=== PATIENT | female | born 1945 | race Caucasian/White ===

== ENCOUNTER → 2017-09-27 | Outpatient (CLI) | payer MEDICARE, OTHER ==
[~2017-09-27] MED LIST: Allegra PO; CALTRATE 6001 TABLE1 PO; COUMADIN,JANTOVE1 MG PO; DIOVAN HCT 11 TABLE1 PO; ENDOCET 5-3251 EACH PO; FEOSOL325 MG PO; FLU PO; NYQUIL D COLD PO; ZEGERID20 MG PO; ZOVIRAX800 M1 PO; Zocor PO; Zoloft PO
== END | disposition home or self-care (01) ==
LOC: CDC 15:08
DX: Z01.810 Encounter for preprocedural cardiovascular examination (principal); K40.30 Unilateral inguinal hernia, with obstruction, without gangrene, not specified as recurrent; R94.31 Abnormal electrocardiogram [ECG] [EKG]
CPT/HCPCS: 93000

== ENCOUNTER 2017-10-12 08:45 | Day surgery (SDC) | payer OTHER ==
[~2017-10-12] VITALS: Ht 157.5 cm; Wt 70.2 kg
[~2017-10-12 08:45] MED LIST changes: +DIOVAN HCT 31 TABLE1 PO; +FLONASE16 G1 BOTH NARES; +LO-DOSE ASPIRIN81 M1 PO; +PRILOSEC20 MG PO; +ULTRAM50 MG PO; +VALACYCLOVIR HCL; +VITAMIN B-121000 MC3 PO; +VITAMIN B-6100 MG PO; +VITAMIN B122500 MCG PO; +VITAMIN D31000 UNIT PO; +ZOCOR40 MG PO; +ZYRTEC10 M3 PO
[2017-10-12 09:14] VITALS: BP 135/67
[2017-10-12 09:55] LABS: CHLORIDE 101 MEQ/L (99-109); GFR ESTIMATE (CALCULATED) 58 mL/min/; GLUCOSE 100 mg/dL (70-99); POTASSIUM 4.2 MEQ/L (3.7-5.4); SODIUM 139 MEQ/L (136-147); UREA NITROGEN (BUN) 21 mg/dL (9-23)
[2017-10-12] MEDS ORDERED: NORCO 5/3251 TABLET PO (13:57)
[2017-10-12 14:20] VITALS: BP 144/65
[2017-10-12 15:12] VITALS: BP 152/66
== END 2017-10-12 15:25 | disposition home or self-care (01) ==
LOC: SDC
PROVIDERS: Surgery
PROC: 0YU50JZ Supplement Right Inguinal Region with Synthetic Substitute, Open Approach (ICD-10-PCS; principal; 2017-10-12)
DX: K40.20 Bilateral inguinal hernia, without obstruction or gangrene, not specified as recurrent (principal); I10 Essential (primary) hypertension; E78.4 Other hyperlipidemia; K21.0 Gastro-esophageal reflux disease with esophagitis; E03.9 Hypothyroidism, unspecified; E66.3 Overweight; Z68.29 Body mass index [BMI] 29.0-29.9, adult; Z85.3 Personal history of malignant neoplasm of breast; Z85.828 Personal history of other malignant neoplasm of skin; Z79.82 Long term (current) use of aspirin; Z88.2 Allergy status to sulfonamides; Z88.5 Allergy status to narcotic agent; Z88.8 Allergy status to other drugs, medicaments and biological substances
CPT/HCPCS: 80048; C1781; J2250; J3010; S0020